=== PATIENT | female | born 1935 | race Caucasian/White ===

== ENCOUNTER → 2017-07-25 | Outpatient (REF) | payer MEDICARE | LOC: M LAB REF 09:31 | PROVIDERS: ATTEND Physician Assistant | DX: J02.9 Acute pharyngitis, unspecified (principal) ==

== ENCOUNTER 2018-01-09 19:26 | Emergency (ER) | payer MEDICARE ==
[2018-01-09 20:40] LABS: BASO % 0.6 % (0.0-1.0); EOS # 0.1 10^3/uL (0.0-0.50); EOS % 1.7 % (0.0-3.0); HEMATOCRIT 44.1 % (36.0-47.0); HEMOGLOBIN 14.3 g/dl (12.0-15.5); IMMATURE GRANULOCYTE % 0.3 % (0-3.0); LYMPH # 1.5 10^3/uL (1.5-4.5); LYMPH % 23.5 % (24.0-44.0); MEAN CORPUSCULAR HGB CONC 32.4 g/dl (32.0-36.5); MEAN CORPUSCULAR VOLUME 95.5 fl (80.0-96.0); MONO # 0.5 10^3/uL (0.0-0.8); MONO % 7.6 % (0.0-5.0); NEUTROPHILS # 4.4 10^3/uL (1.8-7.7); NEUTROPHILS % 66.3 % (36.0-66.0); PLATELET COUNT, AUTOMATED 213 10^3/uL (150-450); RED BLOOD COUNT 4.62 10^6/uL (4.00-5.40); RED CELL DISTRIBUTION WIDTH 13.8 % (11.5-14.5); WHITE BLOOD COUNT 6.6 10^3/uL (4.0-10.0)
[2018-01-09 20:54] LABS: ANION GAP 8 MEQ/L (8-16); BLOOD UREA NITROGEN 20 MG/DL (7-18); CALCIUM LEVEL 9.7 MG/DL (8.8-10.2); CARBON DIOXIDE LEVEL 24 MEQ/L (21-32); CHLORIDE LEVEL 110 MEQ/L (98-107); CK-MB VALUE MASS 1.5 NG/ML (<3.6); CPK CREATINE PHOSPHOKINASE 90 U/L (26-192); CREATININE FOR GFR 0.91 MG/DL (0.55-1.30); GLOMERULAR FILTRATION RATE > 60.0 (>32); GLUCOSE, FASTING 92 MG/DL (70-100); MB/CK RELATIVE INDEX 1.66 (< OR =4); POTASSIUM SERUM 4.2 MEQ/L (3.5-5.1); SODIUM LEVEL 142 MEQ/L (136-145); TROPONIN I < 0.02 NG/ML (< 0.10)
[2018-01-10 02:55] LABS: CK-MB VALUE MASS 1.7 NG/ML (<3.6); CPK CREATINE PHOSPHOKINASE 115 U/L (26-192); MB/CK RELATIVE INDEX 1.47 (< OR =4); TROPONIN I < 0.02 NG/ML (< 0.10)
== END 2018-01-10 03:28 | disposition home or self-care (01) ==
LOC: M ED 01-10 03:28
DX: K21.9 Gastro-esophageal reflux disease without esophagitis (principal); R07.89 Other chest pain; I10 Essential (primary) hypertension; E78.5 Hyperlipidemia, unspecified; G43.909 Migraine, unspecified, not intractable, without status migrainosus; R13.10 Dysphagia, unspecified; Z79.899 Other long term (current) drug therapy
CPT/HCPCS: 71046

== ENCOUNTER 2018-04-17 21:21 | Emergency (ER) | payer MEDICARE ==
[2018-04-17 21:55] LABS: BASO % 0.5 % (0.0-1.0); EOS # 0.2 10^3/uL (0.0-0.50); EOS % 3.1 % (0.0-3.0); HEMATOCRIT 42.4 % (36.0-47.0); IMMATURE GRANULOCYTE % 0.2 % (0-3.0); LYMPH # 1.6 10^3/uL (1.5-4.5); LYMPH % 27.5 % (24.0-44.0); MEAN CORPUSCULAR HEMOGLOBIN 31.8 pg (27.0-33.0); MEAN CORPUSCULAR VOLUME 96.4 fl (80.0-96.0); MONO # 0.5 10^3/uL (0.0-0.8); MONO % 8.4 % (0.0-5.0); NEUTROPHILS # 3.5 10^3/uL (1.8-7.7); NEUTROPHILS % 60.3 % (36.0-66.0); PLATELET COUNT, AUTOMATED 222 10^3/uL (150-450); RED CELL DISTRIBUTION WIDTH 13.2 % (11.5-14.5); WHITE BLOOD COUNT 5.9 10^3/uL (4.0-10.0)
[2018-04-17 22:11] LABS: ANION GAP 8 MEQ/L (8-16); BLOOD UREA NITROGEN 15 MG/DL (7-18); CALCIUM LEVEL 9.6 MG/DL (8.8-10.2); CARBON DIOXIDE LEVEL 28 MEQ/L (21-32); CHLORIDE LEVEL 109 MEQ/L (98-107); CK-MB VALUE MASS 2.3 NG/ML (<3.6); CPK CREATINE PHOSPHOKINASE 131 U/L (26-192); GLOMERULAR FILTRATION RATE 56.2 (>32); GLUCOSE, FASTING 105 MG/DL (70-100); MB/CK RELATIVE INDEX 1.75 (< OR =4); POTASSIUM SERUM 3.6 MEQ/L (3.5-5.1); SODIUM LEVEL 145 MEQ/L (136-145); TROPONIN I < 0.02 NG/ML (< 0.10)
[2018-04-17] MEDS: GI COCKTAIL 50ML BTL(HYOSCYAMINE/MAALOX/LIDOCAINE VISCOUS)(1:3:1) PO ×2 (22:12)
[2018-04-17] MEDS: PANTOPRAZOLE 40MG INJ (PROTONIX) (C9113) IV ×2 (22:12)
[2018-04-17 22:22] LABS: INR 0.98; PROTHROMBIN TIME 13.1 SECONDS (12.1-14.4)
[2018-04-17 22:23] LABS: PARTIAL THROMBOPLASTIN TIME 33.4 SECONDS (25.4-37.6)
[2018-04-17] MEDS ORDERED: ISOVUE-370 76% 100ML VIAL (Q9967) As Ordered ×2 (23:19)
== END 2018-04-18 00:24 | disposition home or self-care (01) ==
LOC: M ED 04-18 00:24
DX: K21.9 Gastro-esophageal reflux disease without esophagitis (principal); I10 Essential (primary) hypertension; E78.5 Hyperlipidemia, unspecified; Z79.899 Other long term (current) drug therapy; K21.0 Gastro-esophageal reflux disease with esophagitis; G43.909 Migraine, unspecified, not intractable, without status migrainosus; F03.90 Unspecified dementia, unspecified severity, without behavioral disturbance, psychotic disturbance, mood disturbance, and anxiety; Z91.11 Patient's noncompliance with dietary regimen
CPT/HCPCS: C9113

== ENCOUNTER 2018-04-18 20:08 | Emergency (ER) | payer MEDICARE | END 2018-04-18 22:26 | disposition home or self-care (01) | LOC: M ED 20:08 | DX: K21.0 Gastro-esophageal reflux disease with esophagitis (principal); I10 Essential (primary) hypertension; E78.5 Hyperlipidemia, unspecified; G43.909 Migraine, unspecified, not intractable, without status migrainosus; F03.90 Unspecified dementia, unspecified severity, without behavioral disturbance, psychotic disturbance, mood disturbance, and anxiety; Z91.11 Patient's noncompliance with dietary regimen; Z79.899 Other long term (current) drug therapy ==

== ENCOUNTER → 2018-04-20 | Outpatient (REF) | payer MEDICARE ==
[2018-04-21 04:15] LABS: CONTROL LINE HPYORI INT CTR LINE PRESENT; H PYLORI QUALITATIVE IgG NEGATIVE (NEGATIVE)
== END ==
LOC: M LAB REF 17:34
DX: K21.9 Gastro-esophageal reflux disease without esophagitis (principal)
CPT/HCPCS: 86677

== ENCOUNTER 2019-02-19 19:38 | Emergency (ER) | payer BC, MEDICARE ==
[~2019-02-19] VITALS: Ht 157.5 cm; Wt 45.9 kg
[~2019-02-19 19:38] MED LIST: AMLO5TAB6; ESCI20TA; MELO15TA28; NAME28CA; PRAV20TA2; PROT1TAB2 PO; TRAZ-163; VITA100054 PO; ZANTTAB PO; ZONI25CA2
[2019-02-19] MEDS ORDERED: DONE10TA90 (19:48)
[2019-02-19] MEDS ORDERED: MIRT1TAB (19:48)
[2019-02-19] MEDS ORDERED: MEMA28CA (19:48)
[2019-02-19] MEDS ORDERED: DIVA250T7 (19:48)
[2019-02-19 21:18] VITALS: BP 157/70
== END 2019-02-19 21:19 | disposition home or self-care (01) ==
LOC: M ED 19:38
DX: S51.802A Unspecified open wound of left forearm, initial encounter (principal); W22.8XXA Striking against or struck by other objects, initial encounter; Y92.099 Unspecified place in other non-institutional residence as the place of occurrence of the external cause; Y93.9 Activity, unspecified; Y99.9 Unspecified external cause status; I10 Essential (primary) hypertension; E78.5 Hyperlipidemia, unspecified; R51 Headache; M54.9 Dorsalgia, unspecified; F41.9 Anxiety disorder, unspecified; Z79.899 Other long term (current) drug therapy

== ENCOUNTER → 2020-12-27 | Outpatient (CLI) | payer MEDICARE ==
[~2020-12-27] MED LIST changes: +AMLO1TAB24; -AMLO5TAB6; +DIVA250T7; +DONE10TA90; -ESCI20TA; +ESCI20TA16; +MEMA28CA; +MIRT1TAB; -TRAZ-163; +TRAZ-257; +ZANT150T40 PO; -ZANTTAB PO; +ZONI25CA13; -ZONI25CA2
--- NOTE | 2020-12-27 13:56 | REP ---
INDICATION: CONTUSION COMPARISON: None. TECHNIQUE: There are four views. FINDINGS: There is no fracture or dislocation. Mineralization and joint spaces are normal. There are no calcifications or foreign bodies. IMPRESSION: Essentially negative right wrist. <Electronically signed by Gildardo Joe > 12/27/20 [id number]
--- NOTE | 2020-12-27 13:58 | REP ---
INDICATION: CONTUSION COMPARISON: None. TECHNIQUE: There are four views. FINDINGS: There is slight soft tissue edema over the dorsum. There is no fracture or dislocation. There is joint space narrowing of the PIP and DIP articulations and thumb IP articulation compatible with osteoarthritis. There are no calcifications or foreign bodies. IMPRESSION: Soft tissue edema over the dorsum. No fracture or dislocation. Osteoarthritis of the digits. <Electronically signed by Gildardo Joe > 12/27/20 [id number]
== END ==
LOC: M WUC 11:17
PROVIDERS: ATTEND Physician Assistant
DX: S60.221A Contusion of right hand, initial encounter (principal); S60.211A Contusion of right wrist, initial encounter; X58.XXXA Exposure to other specified factors, initial encounter; Y92.9 Unspecified place or not applicable; M19.041 Primary osteoarthritis, right hand

== ENCOUNTER → 2021-05-01 | Outpatient (REF) | payer MEDICARE ==
[~2021-05-01] MED LIST changes: +ACE65ERTAB PO; +CEPH500C PO; +LEXA1TAB2 PO; +TRAZ1TAB10 PO; +VITA500054 PO
== END ==
LOC: M WUC 19:24
PROVIDERS: ATTEND Physician Assistant
DX: N39.0 Urinary tract infection, site not specified (principal)

== ENCOUNTER → 2021-05-02 | Outpatient (CLI) | payer MEDICARE ==
--- NOTE | 2021-05-02 16:05 | REP ---
INDICATION: CONSTIPATION. COMPARISON: None. FINDINGS: KUB shows the intestinal gas pattern to be nonspecific. The organ silhouettes insofar as delineated are unremarkable. There is no evidence of free intraperitoneal air. There is a large amount of stool seen throughout the colon particularly within the rectosigmoid vault. Fecal impaction cannot be ruled out. IMPRESSION: As above <Electronically signed by Everardo Velazco > 05/02/21 [id number]
== END ==
LOC: M WUC 15:24
PROVIDERS: ATTEND Physician Assistant
DX: K59.00 Constipation, unspecified (principal)

== ENCOUNTER 2021-05-03 12:31 | Inpatient (IN) | payer MEDICARE ==
[~2021-05-03] VITALS: Ht 152.4 cm; Wt 51.5 kg
[~2021-05-03 12:31] MED LIST changes: -ACE65ERTAB PO; -CEPH500C PO; -LEXA1TAB2 PO; -TRAZ1TAB10 PO; -VITA500054 PO
[2021-05-03 13:39] LABS: BASO % 0.2 % (0.0-1.0); EOS % 0.2 % (0.0-3.0); HEMATOCRIT 38.1 % (36.0-47.0); LYMPH # 1.1 10^3/uL (1.5-5.0); LYMPH % 12.2 % (24.0-44.0); MEAN CORPUSCULAR HEMOGLOBIN 31.3 pg (27.0-33.0); MEAN CORPUSCULAR HGB CONC 31.5 g/dl (32.0-36.5); MEAN CORPUSCULAR VOLUME 99.2 fl (80.0-96.0); MONO # 0.8 10^3/uL (0.0-0.8); MONO % 9.1 % (2.0-8.0); NEUTROPHILS # 6.9 10^3/uL (1.5-8.5); NEUTROPHILS % 77.7 % (36.0-66.0); PLATELET COUNT, AUTOMATED 455 10^3/uL (150-450); RED BLOOD COUNT 3.84 10^6/uL (4.00-5.40); WHITE BLOOD COUNT 8.9 10^3/uL (4.0-10.0)
[2021-05-03 14:13] LABS: ALBUMIN 3.4 GM/DL (3.2-5.2); ALT/SGPT 19 U/L (12-78); BILIRUBIN,DIRECT < 0.1 MG/DL (0.0-0.2); BILIRUBIN,TOTAL 0.3 MG/DL (0.2-1.0); CK-MB VALUE MASS < 1.0 NG/ML (<3.6); CPK CREATINE PHOSPHOKINASE 131 U/L (26-192); LIPASE 106 U/L (73-393); MB/CK RELATIVE INDEX 0.76 (< OR =4); TOTAL PROTEIN 7.3 GM/DL (6.4-8.2); TROPONIN I < 0.02 NG/ML (< 0.10)
--- NOTE | 2021-05-03 14:39 | REP ---
INDICATION: chronic constipation. COMPARISON: Supine view of the abdomen 05/02/2021 TECHNIQUE: Abdomen/pelvis CT without IV or bowel contrast. FINDINGS: There is marked distention of the rectal ampulla with fecal residue measuring up to 10 cm in diameter. The is distention extends into the rectosigmoid colon and distal sigmoid colon. There is no other bowel distention or obstruction. The visualized lung neal are unremarkable except for coronary artery vascular atheromatous calcification and a small Bochdalek's hernia in the right lung posterior sulcus. Cardiac size is borderline enlarged. There is a small pericardial effusion. The unenhanced hepatic parenchyma is unremarkable. The gallbladder, pancreas and spleen are unremarkable. Adrenals are unremarkable. There is a punctate nonobstructive calculus in the right kidney. The kidneys are otherwise unremarkable. Abdominal aorta and periaortic areas are unremarkable. There is no ascites or pneumoperitoneum. Pelvis: There is a hysterectomy. The vaginal cuff and adnexa are unremarkable. The bladder is unremarkable. There is no adenopathy or ascites. IMPRESSION: Marked distention of the rectal ampulla with fecal residue up to 10 cm in diameter, extending in to the distal sigmoid colon compatible with a large fecal impaction There is no bowel obstruction. No ascites or pneumoperitoneum. Punctate nonobstructive right renal calculus. Hysterectomy. Coronary artery vascular calcified atheroma. Cardiac size is borderline enlarged. There is a small pericardial calcification. Small Bochdalek's hernia. <Electronically signed by Gildardo Joe > 05/03/21 [id number]
[2021-05-03] MEDS ORDERED: MIDAZOLAM INJ 2MG/2ML VIAL (J2250 PER 1MG) IV ONE ×2 (15:15→15:45)
[2021-05-03] MEDS ORDERED: cefTRIAXone SOD 1 GM in D5W MINI-BAG PLUS 50 ML IV ONE (15:45)
[2021-05-03 16:02] LABS: RSV AMPLIFICATION NEGATIVE (NEGATIVE)
[2021-05-03] MEDS ORDERED: TRAZ1TAB10 PO (16:31)
[2021-05-03] MEDS ORDERED: LEXA1TAB2 PO (16:31)
[2021-05-03] MEDS ORDERED: ACE65ERTAB PO (16:31)
[2021-05-03] MEDS ORDERED: VITA500054 PO (16:31)
[2021-05-03] MEDS ORDERED: CEPH500C PO (16:31)
[2021-05-03] MEDS ORDERED: HOME MED LIST COMPLETE! XX SCH (16:35)
[2021-05-03] MEDS ORDERED: hydrALAZINE 20MG/ML 1ML VIAL (J0360 PER 20MG) IV STA (18:27)
[2021-05-03] MEDS ORDERED: ONDANSETRON 4MG/2ML VIAL IV PRN (18:30)
[2021-05-03] MEDS ORDERED: NS 1,000 ML IV SCH (18:50)
[2021-05-03] MEDS ORDERED: FLEET ENEMA PR PRN (18:50)
[2021-05-03] MEDS ORDERED: MORPHINE 2 MG/ML 1ML VIAL (J2270) IV PRN ×2 (18:55)
--- NOTE | 2021-05-03 18:59 | HPEPDOC ---
[facility] Medical History & Physical Date of Admission May 03, 2021 Date of Service: May 03, 2021 Attending Physician: EMELINA DANIEL MD History and Physical CHIEF COMPLAINT: [86 y/o female brought in by son for constipation x10 days, altered mental status] HISTORY OF PRESENT ILLNESS: [This is an 86 y/o female with a pmh of advanced dementia, hld and htn who was brought into the ED by her son with a cc of constipation for at least 10 days and altered mental status. Patient herself is very altered an not able to provide history. Son states that he and family have noticed patient has been "declining rapidly" over the past few weeks. Son states that family eventually noted that patient had not had a bowel movement in some time. Son is not exactly sure when the last bowel movement was, but states that he and the family guess that it has been at least 10 days. Patient has also been noted to have increased abd pain noticed by her recurrently reaching for her stomach and not being able to move her bowels. Patient has also had decreasing appetite. Patient was brought to urgent care several days ago for evaluation and was found to have a UTI and was started on oral abx. Patient however has not been improving and thus was brought to us for evaluation. Son states that family has noted no fevers, vomiting.] PAST MEDICAL HISTORY: 1. [See HPI PAST SURGICAL HISTORY: 1. [Ovarian cystectomy]. 2. [Hysterectomy]. SOCIAL HISTORY: Tobacco use:[Denies] ETOH: [Denies] Illicit drug use: [Denies] FAMILY HISTORY: Reviewed with son - none pertinent ALLERGIES: Please see below. REVIEW OF SYSTEMS: Unable to obtain accurate ros d/t patient's mentation HOME MEDICATIONS: Please see below. PHYSICAL EXAMINATION: VITAL SIGNS: Please see below. GENERAL APPEARANCE: [This is an 86 y/o female who is resting in bed. She does not appear to be in any acute distress. She answers questions nonsensically.]. HEENT: [No mass or lesion. EOMI. No scleral icterus. Nares patent. Oral mucosa dry.]. CARDIOVASCULAR: [Regular rate, rhythm. No murmurs, rubs, gallops]. LUNGS: [Good air flow b/l. No wheezing, rales, rhonchi.]. ABDOMEN: [Soft, tender to lower quadrants. Somewhat distended.]. MUSCULOSKELETAL: [No joint deformity]. EXTREMITIES: [No pedal edema appreciated. No overlying skin changes. Pulses i ntact.]. NEUROLOGICAL: [Speech clear but nonsensical. Patient not oriented.]. PSYCHIATRIC: [Patient is confused]. LABORATORY DATA: See below. IMAGING: [CT Abd/pelvis: FINDINGS: There is marked distention of the rectal ampulla with fecal residue measuring up to 10 cm in diameter. The is distention extends into the rectosigmoid colon and distal sigmoid colon. There is no other bowel distention or obstruction. The visualized lung neal are unremarkable except for coronary artery vascular atheromatous calcification and a small Bochdalek's hernia in the right lung posterior sulcus. Cardiac size is borderline enlarged. There is a small pericardial effusion. The unenhanced hepatic parenchyma is unremarkable. The gallbladder, pancreas and spleen are unremarkable. Adrenals are unremarkable. There is a punctate nonobstructive calculus in the right kidney. The kidneys are otherwise unremarkable. Abdominal aorta and periaortic areas are unremarkable. There is no ascites or pneumoperitoneum. Pelvis: There is a hysterectomy. The vaginal cuff and adnexa are unremarkable. The bladder is unremarkable. There is no adenopathy or ascites. IMPRESSION: Marked distention of the rectal ampulla with fecal residue up to 10 cm in diameter, extending in to the distal sigmoid colon compatible with a large fecal impaction There is no bowel obstruction. No ascites or pneumoperitoneum. Punctate nonobstructive right renal calculus. Hysterectomy. Coronary artery vascular calcified atheroma. Cardiac size is borderline enlarged. There is a small pericardial calcification. Small Bochdalek's hernia.] MICROBIOLOGY: Please see below. ASSESSMENT: [his is an 86 y/o female with a pmh of advanced dementia, hld and htn who was brought into the ED by her son with a cc of constipation for at least 10 days and altered mental status. Patient herself is very altered an not able to provide history. Son states that he and family have noticed patient has been "declining rapidly" over the past few weeks. Son states that family eventually noted that patient had not had a bowel movement in some time. Son is not exactly sure when the last bowel movement was, but states that he and the family guess that it has been at least 10 days. patient also recently found to have uti at local urgent care]. . PLAN: 1. [Fecal impaction - Unclear etiology of constipation. Patient is not on opioid therapy at home - Digital disimpaction performed by ED provider. Provider reports some success at removing some stool but stopped prematurely d/t patient comfort. - Will begin enema therapy - One time mag citrate - Zofran for nausea - Morphine for pain - Admit to treatment 2. Hypertensive urgency - Patient's sbp found to be >200 in the ED. - Most likely 2/2 patient anxiety and pain - Resolved with on dose iv hydralazine - will monitor pressures 3. UTI - UA + - urine culture sent - will switch patient to iv rocephin in patient 4. Dementia - continue at home trazodone for sleep - will add prn rozerem if needed - sitter if patient becomes agitated 5. Depression/anxiety - continue lexapro DVT prophylaxis - mechanical]. Vital Signs Vital Signs Date Time Temp Pulse Resp B/P (MAP) Pulse Ox O2 Delivery O2 Flow Rate FiO2 05/03/21 18:50 199/82 05/03/21 18:26 85 97 Room Air 05/03/21 15:39 18 05/03/21 12:32 98.4 Laboratory Data Labs 24H Laboratory Tests 2 05/03/21 13:29: Immature Granulocyte % (Auto) 0.6, Neutrophils (%) (Auto) 77.7H, Lymphocytes (%) (Auto) 12.2L, Monocytes (%) (Auto) 9.1H, Eosinophils (%) (Auto) 0.2, Basophils (%) (Auto) 0.2, Neutrophils # (Auto) 6.9, Lymphocytes # (Auto) 1.1L, Monocytes # (Auto) 0.8, Eosinophils # (Auto) 0.0, Basophils # (Auto) 0.0, Nucleated Red Blood Cells % (auto) 0.0, Total Bilirubin 0.3, Direct Bilirubin < 0.1, Aspartate Amino Transf (AST/SGOT) 20, Alanine Aminotransferase (ALT/SGPT) 19, Alkaline Phosphatase 95, Total Creatine Kinase 131, Creatine Kinase MB < 1.0, Creatine Kinase MB Relative Index 0.76, Troponin I < 0.02, Total Protein 7.3, Albumin 3.4, Albumin/Globulin Ratio 0.9L, Lipase 106 05/03/21 13:30: POC Glucose (Misc Panel) 114H, POC Sodium (Misc Panel) 143, POC Potassium (Misc Panel) 3.8, POC Chloride (Misc Panel) 102, POC Total CO2 (Misc Panel) 30.0H, POC Blood Urea Nitrogen (Misc Panel 26, POC Ionized Calcium (Misc Panel) 4.9, POC Creatinine (Misc Panel) 0.7, POC Hematocrit (Misc Panel) 37.0L 05/03/21 13:34: POC Lactate (Misc Panel) 1.11 05/03/21 15:16: Coronavirus (COVID-19)(PCR) NEGATIVE, Influenza Type A (RT-PCR) NEGATIVE, I nfluenza Type B (RT-PCR) NEGATIVE, Respiratory Syncytial Virus (PCR) NEGATIVE 05/03/21 15:43: Urine Color YELLOW, Urine Appearance HAZY, Urine pH 5.0, Urine Specific [place] 1.018, Urine Protein 2+H, Urine Glucose (UA) NEGATIVE, Urine Ketones NEGATIVE, Urine Blood 1+H, Urine Nitrite NEGATIVE, Urine Bilirubin NEGATIVE, Urine Urobilinogen 0.2, Urine Leukocyte Esterase 2+H, Urine WBC (Auto) 85H, Urine RBC (Auto) 3, Urine Hyaline Casts (Auto) 0, Urine Bacteria (Auto) 1+H, Urine S quamous Epithelial Cells 0, Urine Sperm (Auto) CBC/BMP Laboratory Tests 05/03/21 13:29 Microbiology Microbiology 05/03/21 Urine Culture, Received Pending Home Medications Scheduled Acetaminophen (Acetaminophen ER) 650 Mg Tablet.er, 650 MG PO BID Cephalexin (Cephalexin) 500 Mg Capsule, 500 MG PO BID STARTED 05/01 FOR 7 DAY COURSE Cholecalciferol (Vitamin D3) (Vitamin D3) 125 Mcg Capsule, 125 MCG PO DAILY Escitalopram Oxalate (Lexapro) 20 Mg Tablet, 20 MG PO DAILY Trazodone HCl (Trazodone HCl) 50 Mg Tablet, 50 MG PO QHS Allergies Coded Allergies: No Known Allergies (Unverified , 01/09/18) A-FIB/CHADSVASC A-FIB History Current/History of A-Fib/PAF?: No TRACIE PAN May 03, 2021 18:59
[2021-05-03] MEDS ORDERED: BISACODYL ENEMA 10 MG/30 ML PR ONE (19:30)
[2021-05-03 19:55] VITALS: BP 133/75
[2021-05-03] MEDS ORDERED: RAMELTEON 8 MG TAB (ROZEREM) PO PRN (21:00)
[2021-05-03] MEDS: MAGNESIUM CITRATE 300 ML BTL PO ONE ×2 (21:00→21:24)
[2021-05-03] MEDS: traZODone 50 MG TAB PO SCH (21:24)
[2021-05-03] MEDS: ACETAMINOPHEN 650MG ER TAB (TYLENOL ARTHRITIS) PO SCH (21:24)
[2021-05-03] MEDS: DOCUSATE SODIUM 100MG CAPSULE PO SCH (21:24)
[2021-05-04] VITALS: BP 190/82
[2021-05-04 04:00] VITALS: BP 150/80
[2021-05-04 07:59] VITALS: BP 132/72
[2021-05-04] MEDS: amLODIPine 5 MG TAB PO SCH (08:46)
[2021-05-04] MEDS: ACETAMINOPHEN 650MG ER TAB (TYLENOL ARTHRITIS) PO SCH ×2 (08:48→21:42)
[2021-05-04] MEDS: DOCUSATE SODIUM 100MG CAPSULE PO SCH ×2 (08:48→21:00)
[2021-05-04] MEDS: ESCITALOPRAM OXALATE 10 MG TAB (LEXAPRO) PO SCH (08:48)
[2021-05-04] MEDS ORDERED: SLF 3 ML SYR IV PRN (10:05)
[2021-05-04 10:49] LABS: HEMATOCRIT 36.1 % (36.0-47.0); HEMOGLOBIN 11.6 g/dl (12.0-15.5); MEAN CORPUSCULAR HEMOGLOBIN 31.4 pg (27.0-33.0); MEAN CORPUSCULAR HGB CONC 32.1 g/dl (32.0-36.5); MEAN CORPUSCULAR VOLUME 97.6 fl (80.0-96.0); PLATELET COUNT, AUTOMATED 419 10^3/uL (150-450); WHITE BLOOD COUNT 9.3 10^3/uL (4.0-10.0)
[2021-05-04 11:17] LABS: BLOOD UREA NITROGEN 17 MG/DL (7-18); CALCIUM LEVEL 9.4 MG/DL (8.8-10.2); CARBON DIOXIDE LEVEL 29 MEQ/L (21-32); CHLORIDE LEVEL 109 MEQ/L (98-107); CREATININE FOR GFR 0.49 MG/DL (0.55-1.30); GLOMERULAR FILTRATION RATE > 60.0 (>32); GLUCOSE, FASTING 98 MG/DL (70-100); MAGNESIUM LEVEL 2.3 MG/DL (1.8-2.4); POTASSIUM SERUM 3.4 MEQ/L (3.5-5.1); SODIUM LEVEL 144 MEQ/L (136-145)
[2021-05-04] MEDS: SLF 3 ML SYR IV SCH ×2 (12:00→21:52)
[2021-05-04] MEDS ORDERED: cefTRIAXone SOD 1 GM in D5W MINI-BAG PLUS 50 ML IV SCH (16:00)
[2021-05-04] MEDS ORDERED: POTASSIUM CHLORIDE 10 MEQ SR TABLET PO ONE (16:00)
[2021-05-04 16:11] VITALS: BP 142/65
--- NOTE | 2021-05-04 16:14 | IPNPDOC ---
Text Note Date of Service The patient was seen on 05/04/21. NOTE Subjective: 86-year-old female with past medical history of advanced dementia who was brought to the emergency department by her son with chief complaint of constipation for least 10 days and altered mental status. Patient went to urgent care a few days ago and was diagnosed with a urinary tract infection and started on Keflex. Culture result from that did show Klebsiella which was sensitive to Keflex. Patient was manually disimpacted in the emergency department and has had a few bowel movements today. Due to the patient's dementia, history from the patient is unreliable. Patient's son states that the patient has been having difficulty going to the bathroom since last Wednesday and has not been eating nearly as much as she has in the past. Physical exam: Vitals: See below General: Alert but not oriented female who is laying in bed when I walk into the room. Patient not appear to be in any acute distress. HEENT: Normocephalic, atraumatic, moist mucous membranes. Neck: No lymphadenopathy or thyromegaly Cardiac: Regular rate and rhythm, no murmurs, normal S1, normal S2 Pulm: Clear to auscultation bilaterally. No wheezes, rhonchi, rales Abd: Nondistended, nontender to palpation, normal bowel sounds Ext: No edema bilateral lower extremities Labs: See below Imaging: No new imaging has been performed Assessment/plan: 86-year-old female with a history of advanced dementia who was brought to the emergency department with chief complaint of constipation who was found to have a fecal impaction 1. Fecal impaction, unclear etiology. Will begin enema therapy and stool softeners. We will continue to monitor. 2. Hypertensive urgency. Patient's blood pressure was quite high and was given 1 dose of IV hydralazine. Patient's blood pressure is within normal limits and will continue to monitor. 3. Urinary tract infection. Urinary analysis was positive but urine culture was negative. Urine culture from urgent care grew out Klebsiella that is sensitive to Keflex. Patient be switched back to oral therapy. 4. Dementia. Patient's son states that they are unable to care for the patient anymore and had started the process of placing the patient at [facility] outpatient. I will speak with clinical discharge planning tomorrow about this and try to expedite this process. 5. Depression/anxiety. Continue Lexapro DVT Prophylaxis: Mechanical Disposition: Possible placement in care home facility. Patient will be transferred from PCU to [facility] Poly MUNOZ, I+O Poly MUNOZ I+O Laboratory Tests 05/04/21 10:36 Vital Signs Date Time Temp Pulse Resp B/P (MAP) Pulse Ox O2 Delivery O2 Flow Rate FiO2 05/04/21 08:46 69 132/72 05/04/21 07:59 98.1 18 91 Room Air I&O- Last 24 Hours up to 6 AM 05/04/21 06:00 Intake Total 770 ml Output Total 250 ml Balance 520 ml LISA ALFORD DO May 04, 2021 16:14
--- NOTE | 2021-05-04 20:17 | ECGEPIP ---
[facility] - ED Test Date: 2021-05-03 Pat Name: LUIS DANIEL BETTS Department: Room: - Gender: Female Siphoner: boom : 1935 Requested By: PIYUSH Hanks Order Number: [id number] Reading MD: Haley Howell Measurements Intervals [place] Rate: 66 P: 33 WA: 146 QRS: 19 QRSD: 70 T: 15 QT: 422 QTc: 442 Interpretive Statements Normal sinus rhythm NSTTW abnormalities similar 04/18/18 Electronically Signed on 05-04-2021 20:17:07 EDT by Haley Howell
[2021-05-04] MEDS: traZODone 50 MG TAB PO SCH (21:43)
[2021-05-05] VITALS: BP 159/72
[2021-05-05 05:40] LABS: HEMATOCRIT 38.6 % (36.0-47.0); HEMOGLOBIN 12.3 g/dl (12.0-15.5); MEAN CORPUSCULAR HEMOGLOBIN 31.2 pg (27.0-33.0); MEAN CORPUSCULAR HGB CONC 31.9 g/dl (32.0-36.5); PLATELET COUNT, AUTOMATED 419 10^3/uL (150-450); RED BLOOD COUNT 3.94 10^6/uL (4.00-5.40); WHITE BLOOD COUNT 9.6 10^3/uL (4.0-10.0)
[2021-05-05 06:01] LABS: BLOOD UREA NITROGEN 20 MG/DL (7-18); CALCIUM LEVEL 9.1 MG/DL (8.8-10.2); CARBON DIOXIDE LEVEL 29 MEQ/L (21-32); CHLORIDE LEVEL 108 MEQ/L (98-107); CREATININE FOR GFR 0.66 MG/DL (0.55-1.30); GLOMERULAR FILTRATION RATE > 60.0 (>32); GLUCOSE, FASTING 97 MG/DL (70-100); MAGNESIUM LEVEL 2.2 MG/DL (1.8-2.4); POTASSIUM SERUM 3.1 MEQ/L (3.5-5.1); SODIUM LEVEL 142 MEQ/L (136-145)
[2021-05-05] MEDS: SLF 3 ML SYR IV SCH ×3 (06:07→22:00)
[2021-05-05] MEDS ORDERED: POTASSIUM CHLORIDE 10 MEQ SR TABLET PO ONE (07:55)
[2021-05-05 08:00] VITALS: BP 190/70
[2021-05-05] MEDS: DOCUSATE SODIUM 100MG CAPSULE PO SCH ×2 (08:36→22:06)
[2021-05-05] MEDS: ACETAMINOPHEN 650MG ER TAB (TYLENOL ARTHRITIS) PO SCH ×3 (08:36→22:07)
[2021-05-05] MEDS: ESCITALOPRAM OXALATE 10 MG TAB (LEXAPRO) PO SCH (08:37)
[2021-05-05] MEDS: amLODIPine 5 MG TAB PO SCH (08:38)
--- NOTE | 2021-05-05 11:15 | IPNPDOC ---
Text Note Date of Service The patient was seen on 05/05/21. NOTE Subjective: Patient is an 86-year-old female past medical history of advanced dementia who was brought to the emergency department by her son with a chief complaint of constipation for at least 10 days and altered mental status. Patient had a urinary tract infection that showed Klebsiella prior to coming in. Patient was on Keflex prior to coming in. Patient has been having bowel movements but her history is unreliable due to her advanced dementia. I did speak with the son yesterday who states that the patient has been having difficulty going the bathroom for about 10 days prior to coming into the hospital. They are trying to get the patient placed in a residential as they are unable to care for her. Review of systems: Unable to obtain due to patient's advanced dementia Physical exam: Vitals: See below General: Alert but not oriented female who was laying in bed when I walked in the room. Patient not appear to be in any acute distress. HEENT: Normocephalic, atraumatic, moist mucous membranes. Neck: No lymphadenopathy or thyromegaly Cardiac: Regular rate and rhythm, no murmurs, normal S1, normal S2 Pulm: Clear to auscultation bilaterally. No wheezes, rhonchi, rales Abd: Nondistended, nontender to palpation, normal bowel sounds Ext: No edema bilateral lower extremities Labs: See below Imaging: No new imaging has been performed Assessment/plan: 86-year-old female with a past history of advanced dementia who was brought to the emergency department with chief complaint of constipation was found to have fecal impaction. 1. Fecal impaction, unclear in etiology. Begin enema therapy and stool softeners. Patient has had some bowel movements while in the hospital. We will continue to monitor. 2. Hypertensive urgency. Patient's blood pressure was quite elevated. Patient was started on amlodipine yesterday but did not get a dose because her blood pressure was lower after receiving a dose of IV hydralazine. Patient's blood pressure was elevated today and will receive this medication. 3. Urinary tract infection. Urinary analysis was positive but culture was negative. Patient had a urine culture at the urgent care which grew Klebsiella that was sensitive to Keflex. Patient was on Rocephin in the hospital. This will be changed back to Keflex today. 4. Advanced dementia. Patient's son states that they are unable to care for the patient at home and had begun the process of placing patient at [facility]. Spoke with clinical discharge planning today to try to expedite this process. 5. Depression/anxiety. Continue Lexapro. DVT Prophylaxis: Mechanical Disposition: Pending placement VS,Fishbone, I+O VS, Fishbone, I+O Laboratory Tests 05/05/21 05:28 Vital Signs Date Time Temp Pulse Resp B/P (MAP) Pulse Ox O2 Delivery O2 Flow Rate FiO2 05/05/21 08:38 78 190/78 05/05/21 08:00 97.5 18 98 Room Air I&O- Last 24 Hours up to 6 AM 05/05/21 06:00 Intake Total 290 ml Output Total 340 ml Balance -50 ml LISA ALFORD DO May 05, 2021 11:15
[2021-05-05] MEDS: CEPHALEXIN 250MG CAPSULE PO SCH ×2 (12:55→22:06)
[2021-05-05 15:00] VITALS: BP 161/76
[2021-05-05 15:37] VITALS: BP 161/79
[2021-05-05 16:00] VITALS: BP 158/88
[2021-05-05] MEDS ORDERED: ONDANSETRON 4 MG ORAL DISINTEGRATING TAB PO PRN (17:05)
[2021-05-05] MEDS: RAMELTEON 8 MG TAB (ROZEREM) PO SCH (22:06)
[2021-05-05] MEDS: traZODone 50 MG TAB PO SCH (22:06)
[2021-05-06] MEDS: ACETAMINOPHEN 650MG ER TAB (TYLENOL ARTHRITIS) PO SCH ×3 (05:50→20:19)
[2021-05-06 06:00] VITALS: BP 148/71
[2021-05-06 06:31] LABS: HEMATOCRIT 39.5 % (36.0-47.0); HEMOGLOBIN 12.3 g/dl (12.0-15.5); MEAN CORPUSCULAR HEMOGLOBIN 30.5 pg (27.0-33.0); MEAN CORPUSCULAR HGB CONC 31.1 g/dl (32.0-36.5); PLATELET COUNT, AUTOMATED 429 10^3/uL (150-450); RED BLOOD COUNT 4.03 10^6/uL (4.00-5.40); WHITE BLOOD COUNT 13.4 10^3/uL (4.0-10.0)
[2021-05-06 06:57] LABS: BLOOD UREA NITROGEN 21 MG/DL (7-18); CALCIUM LEVEL 9.5 MG/DL (8.8-10.2); CARBON DIOXIDE LEVEL 28 MEQ/L (21-32); CHLORIDE LEVEL 108 MEQ/L (98-107); GLOMERULAR FILTRATION RATE > 60.0 (>32); GLUCOSE, FASTING 112 MG/DL (70-100); MAGNESIUM LEVEL 2.5 MG/DL (1.8-2.4); POTASSIUM SERUM 3.3 MEQ/L (3.5-5.1); SODIUM LEVEL 141 MEQ/L (136-145)
[2021-05-06] MEDS: DOCUSATE SODIUM 100MG CAPSULE PO SCH ×3 (09:00→20:20)
[2021-05-06] MEDS: CEPHALEXIN 250MG CAPSULE PO SCH ×3 (09:00→20:19)
[2021-05-06] MEDS: ESCITALOPRAM OXALATE 10 MG TAB (LEXAPRO) PO SCH (09:50)
[2021-05-06] MEDS: amLODIPine 5 MG TAB PO SCH (09:53)
[2021-05-06 14:00] VITALS: BP 151/73
[2021-05-06 19:21] VITALS: BP 169/94
[2021-05-06] MEDS: RAMELTEON 8 MG TAB (ROZEREM) PO SCH (20:19)
[2021-05-06] MEDS: traZODone 50 MG TAB PO SCH (20:19)
[2021-05-07] MEDS: ACETAMINOPHEN 650MG ER TAB (TYLENOL ARTHRITIS) PO SCH ×2 (05:15→14:52)
[2021-05-07 05:42] VITALS: BP 167/86
[2021-05-07 06:32] LABS: HEMATOCRIT 40.3 % (36.0-47.0); HEMOGLOBIN 12.7 g/dl (12.0-15.5); MEAN CORPUSCULAR HEMOGLOBIN 30.8 pg (27.0-33.0); MEAN CORPUSCULAR HGB CONC 31.5 g/dl (32.0-36.5); MEAN CORPUSCULAR VOLUME 97.8 fl (80.0-96.0); PLATELET COUNT, AUTOMATED 504 10^3/uL (150-450); RED BLOOD COUNT 4.12 10^6/uL (4.00-5.40); WHITE BLOOD COUNT 14.8 10^3/uL (4.0-10.0)
[2021-05-07 06:52] LABS: BLOOD UREA NITROGEN 26 MG/DL (7-18); CALCIUM LEVEL 10.3 MG/DL (8.8-10.2); CARBON DIOXIDE LEVEL 29 MEQ/L (21-32); CHLORIDE LEVEL 107 MEQ/L (98-107); CREATININE FOR GFR 0.79 MG/DL (0.55-1.30); GLOMERULAR FILTRATION RATE > 60.0 (>32); GLUCOSE, FASTING 123 MG/DL (70-100); MAGNESIUM LEVEL 2.6 MG/DL (1.8-2.4); POTASSIUM SERUM 3.7 MEQ/L (3.5-5.1); SODIUM LEVEL 144 MEQ/L (136-145)
[2021-05-07] MEDS: CEPHALEXIN 250MG CAPSULE PO SCH ×2 (10:22→20:51)
[2021-05-07] MEDS: DOCUSATE SOD LIQ 100MG/10ML UDC PO SCH ×2 (10:22→20:50)
[2021-05-07] MEDS: ESCITALOPRAM OXALATE 10 MG TAB (LEXAPRO) PO SCH (10:23)
[2021-05-07 14:00] VITALS: BP 152/80
[2021-05-07] MEDS ORDERED: ACETAMINOPHEN TAB 650MG DOSE (2X325MG) PO SCH (18:00)
[2021-05-07] MEDS: traZODone 50 MG TAB PO SCH (20:51)
[2021-05-07] MEDS: ACETAMINOPHEN TAB 650MG DOSE (2X325MG) PO SCH (20:51)
[2021-05-07] MEDS: RAMELTEON 8 MG TAB (ROZEREM) PO SCH (20:51)
[2021-05-08] MEDS: ACETAMINOPHEN TAB 650MG DOSE (2X325MG) PO SCH ×4 (02:48→23:04)
[2021-05-08 06:10] VITALS: BP 190/92
[2021-05-08 06:36] LABS: HEMATOCRIT 40.8 % (36.0-47.0); HEMOGLOBIN 12.9 g/dl (12.0-15.5); MEAN CORPUSCULAR HEMOGLOBIN 30.9 pg (27.0-33.0); MEAN CORPUSCULAR HGB CONC 31.6 g/dl (32.0-36.5); MEAN CORPUSCULAR VOLUME 97.6 fl (80.0-96.0); PLATELET COUNT, AUTOMATED 473 10^3/uL (150-450); RED BLOOD COUNT 4.18 10^6/uL (4.00-5.40); WHITE BLOOD COUNT 19.5 10^3/uL (4.0-10.0)
[2021-05-08 06:57] LABS: BLOOD UREA NITROGEN 34 MG/DL (7-18); CALCIUM LEVEL 10.4 MG/DL (8.8-10.2); CARBON DIOXIDE LEVEL 32 MEQ/L (21-32); CHLORIDE LEVEL 109 MEQ/L (98-107); CREATININE FOR GFR 0.74 MG/DL (0.55-1.30); GLOMERULAR FILTRATION RATE > 60.0 (>32); GLUCOSE, FASTING 164 MG/DL (70-100); MAGNESIUM LEVEL 2.7 MG/DL (1.8-2.4); POTASSIUM SERUM 3.5 MEQ/L (3.5-5.1); SODIUM LEVEL 144 MEQ/L (136-145)
[2021-05-08] MEDS ORDERED: CEPHALEXIN SUSP POWDER 250MG/5ML BTL 100ML PO SCH (09:00)
[2021-05-08] MEDS ORDERED: CEPHALEXIN 500 MG CAP PO SCH (09:35)
[2021-05-08] MEDS: DOCUSATE SOD LIQ 100MG/10ML UDC PO SCH ×2 (09:39→23:03)
[2021-05-08] MEDS: ESCITALOPRAM OXALATE 10 MG TAB (LEXAPRO) PO SCH (09:45)
[2021-05-08 11:23] VITALS: BP 134/66
[2021-05-08 14:00] VITALS: BP 121/73
--- NOTE | 2021-05-08 19:07 | REP ---
INDICATION: Pneumonia. COMPARISON: Portable chest dated 04/17/2018. TECHNIQUE: Portable AP chest with the patient upright FINDINGS: The lung neal are clear. Cardiac size is normal. The mickie, mediastinum and skeletal structures are unremarkable. IMPRESSION: Essentially negative portable chest <Electronically signed by Gildardo Joe > 05/08/21 [id number]
[2021-05-08 22:00] VITALS: BP 156/81
[2021-05-08] MEDS: RAMELTEON 8 MG TAB (ROZEREM) PO SCH (23:03)
[2021-05-08] MEDS: traZODone 50 MG TAB PO SCH (23:03)
[2021-05-09] MEDS: ACETAMINOPHEN TAB 650MG DOSE (2X325MG) PO SCH ×4 (00:35→20:00)
[2021-05-09 06:00] VITALS: BP 155/81
[2021-05-09 06:26] LABS: HEMATOCRIT 39.5 % (36.0-47.0); HEMOGLOBIN 12.6 g/dl (12.0-15.5); MEAN CORPUSCULAR HGB CONC 31.9 g/dl (32.0-36.5); MEAN CORPUSCULAR VOLUME 97.3 fl (80.0-96.0); PLATELET COUNT, AUTOMATED 498 10^3/uL (150-450); RED BLOOD COUNT 4.06 10^6/uL (4.00-5.40); WHITE BLOOD COUNT 19.6 10^3/uL (4.0-10.0)
[2021-05-09 06:57] LABS: ALBUMIN 2.9 GM/DL (3.2-5.2); BILIRUBIN,TOTAL 0.5 MG/DL (0.2-1.0); CALCIUM LEVEL 10.6 MG/DL (8.8-10.2); CREATININE FOR GFR 1.49 MG/DL (0.55-1.30); GLOMERULAR FILTRATION RATE 35.2 (>32); MAGNESIUM LEVEL 2.8 MG/DL (1.8-2.4); POTASSIUM SERUM 3.6 MEQ/L (3.5-5.1); TOTAL PROTEIN 6.9 GM/DL (6.4-8.2)
[2021-05-09] MEDS ORDERED: D5W/0.45% SODIUM CHLORIDE 1,000 ML IV ONE (08:10)
[2021-05-09] MEDS ORDERED: cefTRIAXone SOD 2 GM in D5W MINI-BAG PLUS 50 ML IV SCH (09:00)
[2021-05-09] MEDS: ESCITALOPRAM OXALATE 10 MG TAB (LEXAPRO) PO SCH (10:36)
[2021-05-09] MEDS: DOCUSATE SOD LIQ 100MG/10ML UDC PO SCH ×2 (10:36→20:20)
[2021-05-09 10:39] VITALS: BP 150/68
[2021-05-09] MEDS: D5W/0.45% SODIUM CHLORIDE 1,000 ML IV SCH ×2 (12:36→20:22)
[2021-05-09 12:54] LABS: CALCIUM LEVEL 9.7 MG/DL (8.8-10.2); CREATININE FOR GFR 1.74 MG/DL (0.55-1.30); GLOMERULAR FILTRATION RATE 29.5 (>32); POTASSIUM SERUM 3.4 MEQ/L (3.5-5.1)
[2021-05-09] MEDS ORDERED: MORPHINE 2 MG/ML 1ML VIAL (J2270) IV PRN (13:25)
[2021-05-09] MEDS ORDERED: HYOSCYAMINE SULFATE 0.125 MG SUBL TABLET PO PRN (13:25)
[2021-05-09] MEDS ORDERED: LORazepam 1 MG TAB PO PRN (13:25)
[2021-05-09] MEDS ORDERED: LORazepam 2 MG/ML VIAL IV PRN (13:25)
[2021-05-09] MEDS ORDERED: MORPHINE 10MG/0.5ML ORAL CONCENTRATE SOLUTION U/D SL PRN (13:25)
[2021-05-09] MEDS ORDERED: ATROPINE SULFATE 1% OP SOLN 2 ML BTL SL PRN (13:25)
[2021-05-09] MEDS ORDERED: FLEET ENEMA PR PRN (13:25)
[2021-05-09] MEDS ORDERED: BISACODYL 10 MG SUPP PR PRN (13:25)
[2021-05-09] MEDS ORDERED: SCOPOLAMINE 1MG TRANSDERMAL PATCH TOP PRN (13:25)
[2021-05-09] MEDS ORDERED: ONDANSETRON 4MG/2ML VIAL IV PRN (13:25)
--- NOTE | 2021-05-09 17:39 | IPNPDOC ---
Text Note Date of Service The patient was seen on 05/09/21. NOTE Subjective: Today her son who is the proxy and power of consumer attorney requested [employer]FOR[employer]CE [employer]SULT[employer] status Objective: GENERAL APPEARANCE: Lethargic and confused HEENT: no scleral icterus, no JVD, EOMI CARDIOVASCULAR: S1S2 LUNGS: CTA ABDOMEN: soft & not tender w palpation MUSCULOSKELETAL: no cyanosis, no swelling INTEGUMENT: no generalized pallor NEUROLOGICAL: cranial nerve function from 2-12 intact, follows commands, speech not dysarthric Assessment and plan 86-year-old female with a past history of advanced dementia who was brought to the emergency department with chief complaint of constipation was found to have fecal impaction. 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
[2021-05-09] MEDS: RAMELTEON 8 MG TAB (ROZEREM) PO SCH (20:21)
[2021-05-10] MEDS: D5W/0.45% SODIUM CHLORIDE 1,000 ML IV SCH ×4 (00:58→22:01)
[2021-05-10] MEDS: ACETAMINOPHEN TAB 650MG DOSE (2X325MG) PO SCH ×4 (01:53→22:01)
[2021-05-10] MEDS: DOCUSATE SOD LIQ 100MG/10ML UDC PO SCH ×2 (09:00→22:00)
[2021-05-10] MEDS: RAMELTEON 8 MG TAB (ROZEREM) PO SCH (22:00)
[2021-05-11] MEDS: ACETAMINOPHEN TAB 650MG DOSE (2X325MG) PO SCH ×4 (02:00→21:39)
[2021-05-11] MEDS: DOCUSATE SOD LIQ 100MG/10ML UDC PO SCH ×2 (08:13→21:38)
[2021-05-11] MEDS: D5W/0.45% SODIUM CHLORIDE 1,000 ML IV SCH ×2 (10:02→18:21)
[2021-05-11] MEDS: RAMELTEON 8 MG TAB (ROZEREM) PO SCH (21:38)
[2021-05-12] MEDS: ACETAMINOPHEN TAB 650MG DOSE (2X325MG) PO SCH ×4 (02:00→20:00)
[2021-05-12] MEDS: D5W/0.45% SODIUM CHLORIDE 1,000 ML IV SCH ×3 (05:52→19:28)
[2021-05-12] MEDS ORDERED: MIRALAX *UNIT DOSE* 17GM PACKET PO PRN (10:05)
[2021-05-12] MEDS: DOCUSATE SOD LIQ 100MG/10ML UDC PO SCH ×2 (10:33→20:24)
[2021-05-12] MEDS: RAMELTEON 8 MG TAB (ROZEREM) PO SCH (20:23)
[2021-05-13] MEDS: ACETAMINOPHEN TAB 650MG DOSE (2X325MG) PO SCH ×4 (01:00→20:00)
[2021-05-13] MEDS: D5W/0.45% SODIUM CHLORIDE 1,000 ML IV SCH ×3 (03:23→21:01)
[2021-05-13] MEDS: DOCUSATE SOD LIQ 100MG/10ML UDC PO SCH ×2 (08:31→20:39)
[2021-05-13] MEDS: RAMELTEON 8 MG TAB (ROZEREM) PO SCH (20:39)
[2021-05-14] MEDS: ACETAMINOPHEN TAB 650MG DOSE (2X325MG) PO SCH ×4 (01:13→20:00)
[2021-05-14] MEDS: D5W/0.45% SODIUM CHLORIDE 1,000 ML IV SCH ×2 (04:18→13:33)
[2021-05-14] MEDS: DOCUSATE SOD LIQ 100MG/10ML UDC PO SCH ×2 (10:03→20:08)
[2021-05-14] MEDS: RAMELTEON 8 MG TAB (ROZEREM) PO SCH (20:08)
[2021-05-15] MEDS: ACETAMINOPHEN TAB 650MG DOSE (2X325MG) PO SCH ×2 (01:01→08:00)
[2021-05-15] MEDS ORDERED: ATRO1OPD SL (08:39)
[2021-05-15] MEDS ORDERED: ATIV1TAB7 PO (08:40)
[2021-05-15] MEDS ORDERED: MORP1SOL SL (08:40)
[2021-05-15] MEDS ORDERED: ONDA4TAB6 PO (08:40)
[2021-05-15] MEDS ORDERED: HYOS125TA PO (08:40)
[2021-05-15] MEDS ORDERED: SCOP1PAT2 TOP (08:40)
[2021-05-15] MEDS ORDERED: FLEEENE12 PR (08:40)
[2021-05-15] MEDS: DOCUSATE SOD LIQ 100MG/10ML UDC PO SCH (08:44)
--- NOTE | 2021-05-15 13:03 | DS.PDOC ---
Discharge Summary General Date of Admission May 03, 2021 at 18:26 Date of Discharge 05/15/2021 Primary Care Physician: Jr Howard Collins Attending Physician: LISA ALFORD DO Discharge Summary PROCEDURES PERFORMED DURING STAY: None. ADMITTING DIAGNOSES: 1. Fecal impaction. 2. Hypertensive urgency 3. UTI 4. Dementia 5. Depression/anxiety DISCHARGE DIAGNOSES: 1. Fecal impaction, improved. 2. Hypertensive urgency, resolved 3. Urinary tract infection, resolved 4. Dementia 5. Depression/anxiety. 6. Acute kidney injury 7. Hypernatremia, resolved COMPLICATIONS/CHIEF COMPLAINT: Hypertensive Urgency. HISTORY OF PRESENT ILLNESS: Patient is an 86-year-old female with past medical history of advanced dementia, hyperlipidemia and hypertension is brought to the emergency department by her son on 05/03/2021 with a chief complaint of constipation for at least 10 days and altered mental status. Patient is very altered and is not able to provide a history. Patient's son states that the family has noticed the patient has been declining rapidly over the past few weeks. Son states that the family eventually noted that patient had not had a bowel movement in some time which they believed to be about 10 days. Patient is also noted to have increased abdominal pain which the patient is communicating by recurrently reaching for her stomach and not being able to have a bowel movement. Patient is also had decreased appetite. Patient was brought to urgent care few days prior to admission and was diagnosed with a urinary tract infection and was started on oral antibiotics. Patient had not been improving and was thus brought in for evaluation. HOSPITAL COURSE: Patient was found to have a fecal impaction which was manually disimpacted in the emergency department and patient was given enema treatment for the impaction. Patient's blood pressure did resolve. Patient's son stated that they had started the process for placement in [facility] due to the patient's advanced dementia. In talking with the patient, patient was alert but she was not oriented. Patient was unable to communicate effectively and was not answering any questions appropriately. Patient's son says that the patient's and the rest of the family have been caring for the patient 100%. They state that they have to carry her to and from the bathroom and they are unable to do this anymore. Patient was awaiting placement in [facility] and was made [facility] status on 05/05/2021. On 05/09/2021, patient's son who was the healthcare proxy and power of compliance attorney requested that the patient be made comfort measures only status. Patient was made comfort measures only on 05/09/2021 with plans to send the patient home with home hospice. Patient was found to have an acute kidney injury with hypernatremia which is thought to be secondary to dehydration however, patient was made comfort measures only on the states and no further work-up was performed. Home hospice was set up and the patient was discharged in the hospital to home hospice on 05/15/2021. DISCHARGE MEDICATIONS: Please see below. ALLERGIES: Please see below. PHYSICAL EXAMINATION ON DISCHARGE: VITAL SIGNS: Please see below. General: Alert but not oriented female who was laying in bed when I walked in. Patient's daughter was at bedside. Patient not appear to be in any acute distress. HEENT: Normocephalic, atraumatic, moist mucous membranes. Neck: No lymphadenopathy or thyromegaly Cardiac: Regular rate and rhythm, no murmurs, normal S1, normal S2 Pulm: Clear to auscultation bilaterally. No wheezes, rhonchi, rales LABORATORY DATA: Please see below. IMAGING: CT of the abdomen and pelvis without contrast performed on 05/03/2021 was reported to show marked distention of the rectal ampulla with fecal residue up to 10 cm in diameter, extending in the distal sigmoid colon compatible with large fecal impaction. There is no bowel obstruction. No ascites or pneumoperitoneum. Punctate nonobstructive right renal calculus. Hysterectomy. Coronary artery vascular calcified atheroma. Cardiac size is borderline enlarged. There is a small pericardial effusion. Small Bochdalek hernia. Chest x-ray performed on 05/08/2021 was reported to show essentially negative portable chest PROGNOSIS: Poor ACTIVITY: As tolerated. DIET: Regular DISCHARGE PLAN: Discharge on home hospice DISPOSITION: [facility]. DISCHARGE INSTRUCTIONS: 1. Follow-up with home hospice provider ITEMS TO FOLLOWUP ON ON OUTPATIENT: 1. None. DISCHARGE CONDITION: Stable. TIME SPENT ON DISCHARGE: 20 minutes. Vital Signs/I&Os Vital Signs Date Time Temp Pulse Resp B/P (MAP) Pulse Ox O2 Delivery O2 Flow Rate FiO2 05/09/21 10:39 81 150/68 05/09/21 06:00 98.8 16 94 Room Air I&O- Last 24 Hours up to 6 AM 05/15/21 06:00 Intake Total 478 ml Output Total 2375 ml Balance -1897 ml Microbiology Microbiology 05/08/21 Blood Culture - Final, Complete NO GROWTH AFTER 5 DAYS 05/08/21 Blood Culture - Final, Complete NO GROWTH AFTER 5 DAYS Discharge Medications Scheduled Acetaminophen (Acetaminophen ER) 650 Mg Tablet.er, 650 MG PO BID, (Reported) Scheduled PRN Atropine Sulfate (Atropine Sulfate) 1% 2ML Drops, 1 DROP SL Q2HP PRN for TERMINAL SECRETIONS Hyoscyamine Sulfate (Hyoscyamine Sulfate) 0.125 Mg Tab.subl, 0.125 MG PO Q4HP PRN for TERMINAL SECRETIONS Lorazepam (Ativan) 1 Mg Tablet, 1 MG PO Q2HP PRN for ANXIETY Morphine Sulfate (Morphine Sulfate Concentrate) 100 Mg/5 Ml Solution, 2 MG SL Q2HP PRN for SEVERE PAIN (PS 8-10) Ondansetron (Ondansetron Odt) 4 Mg Tab.rapdis, 4 MG PO Q6HP PRN for NAUSEA OR VOMITING Scopolamine (Transderm-Scop) 1 Each Patch.td.3, 1 MG TOP Q3DP PRN for EXCESSIVE SECRETIONS Sodium Phosphate,Divide-Dibasic (Fleet Enema) 133 Ml Enema, 1 EA WI Q3DP PRN for CONSTIPATION Allergies Coded Allergies: No Known Allergies (Unverified , 01/09/18) LISA ALFORD DO May 15, 2021 13:03
== END 2021-05-15 12:30 | disposition hospice, home (50) | DRG 389 ==
LOC: M ED 12:31 → M ED INP 18:26 → M PCU 19:50 → M MSPAV 05-05 16:06
PROVIDERS: ADMIT Family Medicine; ATTEND Family Medicine
DX: K56.41 Fecal impaction (principal); N39.0 Urinary tract infection, site not specified; E87.0 Hyperosmolality and hypernatremia; N17.9 Acute kidney failure, unspecified; I16.0 Hypertensive urgency; Z51.5 Encounter for palliative care; Z66 Do not resuscitate; B96.1 Klebsiella pneumoniae [K. pneumoniae] as the cause of diseases classified elsewhere; F03.90 Unspecified dementia, unspecified severity, without behavioral disturbance, psychotic disturbance, mood disturbance, and anxiety; F32.9 Major depressive disorder, single episode, unspecified; F41.9 Anxiety disorder, unspecified; Z20.822 Contact with and (suspected) exposure to COVID-19; Z79.899 Other long term (current) drug therapy

== ENCOUNTER → 2021-05-15 | Outpatient (REF) | payer MEDICARE ==
[~2021-05-15] MED LIST changes: +ACE65ERTAB PO; +ATIV1TAB7 PO; +ATRO1OPD SL; +CEPH500C PO; +FLEEENE12 PR; +HYOS125TA PO; +LEXA1TAB2 PO; +MORP1SOL SL; +ONDA4TAB6 PO; +SCOP1PAT2 TOP; +TRAZ1TAB10 PO; +VITA500054 PO
== END ==
LOC: M LAB REF 19:47
PROVIDERS: ATTEND Internal Medicine
DX: Z00.00 Encounter for general adult medical examination without abnormal findings (principal)